=== PATIENT | male | born 1995 | race Caucasian/White ===

== ENCOUNTER 2017-05-15 09:03 | Emergency (ER) | payer SELFPAY ==
[~2017-05-15] VITALS: Ht 198.1 cm; Wt 106.0 kg
[2017-05-15 09:10] VITALS: BP 144/102
== END 2017-05-15 16:22 | disposition left against medical advice (07) ==
LOC: ER 09:03
DX: R10.9 Unspecified abdominal pain (principal); Z53.21 Procedure and treatment not carried out due to patient leaving prior to being seen by health care provider